=== PATIENT | female | born 1975 | race American Indian/Alaskan Native ===

== ENCOUNTER → 2025-02-03 | Outpatient (CLI) | payer BC, SELFPAY ==
--- NOTE | 2025-02-03 13:04 | XR_ITS ---
Examination: AP pelvis single view TECHNIQUE: AP supine pelvis single view Date and time: February 03, 2025 1328 hours INDICATIONS: Left-sided pelvic pain beginning 2 weeks ago. FINDINGS: Mild osteopenia. No hip fracture or hip dislocation Minimal bilateral hip osteoarthritis Bones the pelvis intact IMPRESSION: Minimal bilateral hip osteoarthritis
--- NOTE | 2025-02-03 13:04 | XR_ITS ---
Examination: Lumbar spine, 5 views Technique: Lumbar spine AP, lateral, coned lateral lower lumbar spine, bilateral obliques 5 views Exam date and time: February 03, 2025 1313 hours INDICATIONS: Left-sided back pain beginning 2 weeks ago. FINDINGS: Adequate alignment lumbar vertebral bodies on the lateral view No lumbar fracture Moderate disc narrowing L4-L5 Advanced disc narrowing L5-S1 No spondylolisthesis IMPRESSION: Advanced degenerative disc disease L5-S1
== END | disposition home or self-care (01) ==
LOC: CDIM 12:43
PROVIDERS: PCP Nurse Practitioner Family; Referring Provider Nurse Practitioner Family; Visit Provider Nurse Practitioner Family
DX: M51.370 Other intervertebral disc degeneration, lumbosacral region with discogenic back pain only (principal); M16.0 Bilateral primary osteoarthritis of hip
CPT/HCPCS: 72110; 72170